=== PATIENT | male | born 1955 | race American Indian/Alaskan Native ===

== ENCOUNTER 2018-10-27 15:48 | Emergency (ER) | payer OTHER ==
--- NOTE | 2018-10-27 15:54 | Event Note ---
ED Screening Note ED Screening Note: pt states he had labwork drawn yesterday states received a call today from his doctors office saying that his blood sugar was too high denies any pain states he has urinary frequency denies any other symptoms PMHx of DM, HTN pt states he takes insulin BG 399 in triage This initial assessment/diagnostic orders/clinical plan/treatment(s) is/are subject to change based on patients health status, clinical progression and re- assessment by fellow clinical providers in the ED. Further treatment and workup at subsequent clinical providers discretion. Patient/guardian urged not to elope from the ED as their condition may be serious if not clinically assessed and managed. Initial orders include: labs, UA
[2018-10-27 16:22] LABS: Hematocrit 42.4 % (35.5-45.6); Hemoglobin 14.2 gm/dl (11.8-15.2); Mean Corpuscular HGB Conc 34 % (32-34); Mean Corpuscular Volume 80 fl (84-94); Platelet Count 164 K/mm3 (140-440); Red Blood Count 5.28 M/mm3 (3.65-5.03); Red Cell Distribution Width 14.7 % (13.2-15.2)
[2018-10-27 16:36] LABS: BUN/Creatinine Ratio 17; Blood Urea Nitrogen 22 mg/dL (9-20); Calcium 9.8 mg/dL (8.4-10.2); Hemolysis Index 4
[2018-10-27 16:59] LABS: Bilirubin,Urine NEG (Negative); Blood,Urine SM (Negative); Color,Urine Straw (Yellow); Protein,Urine <15 mg/dL mg/dL (Negative); Urobilinogen,Urine < 2.0 mg/dL (<2.0); WBC,Urine < 1.0 /HPF (0.0-6.0)
[2018-10-27 17:29] LABS: Basophils % (Manual) 0 % (0.0-1.8); RBC Morphology Normal; Total Cells Counted 100
[2018-10-27] MEDS ORDERED: HumuLIN R IV ONE ×2 (21:22→22:16)
[2018-10-27] MEDS ORDERED: NACL 0.9% 1000 ML 1,000 ML IV ONE (21:22)
[2018-10-28] MEDS ORDERED: HumuLIN R IV ONE (01:47)
[2018-10-28] MEDS ORDERED: NACL 0.9% 1000 ML 1,000 ML IV ONE (01:48)
[2018-10-28] MEDS ORDERED: HumuLIN R ONE (01:52)
[2018-10-28] MEDS ORDERED: NACL 0.9% 1000 ML 1,000 ML ONE (01:53)
[2018-10-28] MEDS ORDERED: ZOFRAN IV ONE (02:33)
[2018-10-28] MEDS ORDERED: ZOFRAN ONE (02:34)
--- NOTE | 2018-10-28 04:36 | Emergency Department Report ---
ED General Adult HPI - General Chief complaint: Hyperglycemia Stated complaint: HIGH BS Time Seen by Provider: 10/27/18 15:52 Source: patient Mode of arrival: Ambulatory Limitations: No Limitations - History of Present Illness MD Complaint: hyperglycemia -: Sudden, days(s) (2) Radiation: non-radiation Severity scale (0 -10): 0 Quality: dull Improves with: none Associated Symptoms: denies other symptoms, loss of appetite, malaise. denies: confusion, chest pain, cough, diaphoresis, fever/chills, headaches, nausea/vomiting, rash, seizure, shortness of breath, syncope, weakness, other Treatments Prior to Arrival: none - Related Data Home Medications Medication Instructions Recorded Confirmed Last Taken Insulin Glargine [Lantus VIAL] 33 units SQ HS 01/07/14 09/30/15 09/29/15 Metformin HCl 1,000 mg PO BID 01/07/14 09/30/15 09/29/15 Sitagliptin Phosphate [Januvia] 100 mg PO DAILY 01/07/14 09/30/15 09/29/15 Aspirin EC 1 tab PO DAILY 06/18/14 09/24/15 09/24/15 Insulin Glargine [Lantus VIAL] 33 unit SUB-Q QAM 06/18/14 09/30/15 09/29/15 Nebivolol (Nf) [Bystolic (Nf)] 10 mg PO DAILY 12/13/14 09/30/15 09/30/15 10:00 AtorvaSTATin [Lipitor] 40 mg PO QDAY 09/24/15 09/30/15 09/29/15 Clopidogrel [Plavix] 75 mg PO QDAY 09/24/15 09/24/15 09/23/15 Losartan/Hydrochlorothiazide 1 tab PO QDAY 09/24/15 09/30/15 09/29/15 [Hyzaar 100-25 TAB] Nitroglycerin [Nitrostat] 0.4 mg SL Q5M PRN 09/24/15 09/24/15 Unknown amLODIPine [Norvasc] 5 mg PO DAILY 09/24/15 09/30/15 09/29/15 Previous Rx's Medication Instructions Recorded Last Taken Type oxyCODONE /ACETAMINOPHEN [Percocet 1 - 2 tab PO Q4HR PRN #40 tablet 09/30/15 Unknown Rx 5/325] Allergies Allergy/AdvReac Type Severity Reaction Status Date / Time No Known Allergies Allergy Verified 10/27/18 15:50 ED Review of Systems ROS: Stated complaint: HIGH BS Other details as noted in HPI ED Past Medical Hx - Past Medical History Hx Hypertension: Yes (FOR 19 YRS, DR. MEADE- PCP, DR. SIBLEY- [employer]) Hx Heart Attack/AMI: Yes (CABG 12/2014, EF 55%, cardiac clearance on chart) Hx Diabetes: Yes (FOR 19 YRS) Hx Renal Disease: No Hx Arthritis: Yes (RIGHT FOOT) Hx HIV: No Additional medical history: cardiac stent x1 - Surgical History Hx Coronary Stent: Yes (X2 IN 2011) - Social History Smoking Status: Never Smoker Substance Use Type: None - Medications Home Medications: Home Medications Medication Instructions Recorded Confirmed Last Taken Type Insulin Glargine [Lantus VIAL] 33 units SQ HS 01/07/14 09/30/15 09/29/15 History Metformin HCl 1,000 mg PO BID 01/07/14 09/30/15 09/29/15 History Sitagliptin Phosphate [Januvia] 100 mg PO DAILY 01/07/14 09/30/15 09/29/15 History Aspirin EC 1 tab PO DAILY 06/18/14 09/24/15 09/24/15 History Insulin Glargine [Lantus VIAL] 33 unit SUB-Q QAM 06/18/14 09/30/15 09/29/15 History Nebivolol (Nf) [Bystolic (Nf)] 10 mg PO DAILY 12/13/14 09/30/15 09/30/15 10:00 History AtorvaSTATin [Lipitor] 40 mg PO QDAY 09/24/15 09/30/15 09/29/15 History Clopidogrel [Plavix] 75 mg PO QDAY 09/24/15 09/24/15 09/23/15 History Losartan/Hydrochlorothiazide 1 tab PO QDAY 09/24/15 09/30/15 09/29/15 History [Hyzaar 100-25 TAB] Nitroglycerin [Nitrostat] 0.4 mg SL Q5M PRN 09/24/15 09/24/15 Unknown History amLODIPine [Norvasc] 5 mg PO DAILY 09/24/15 09/30/15 09/29/15 History oxyCODONE /ACETAMINOPHEN [Percocet 1 - 2 tab PO Q4HR PRN #40 tablet 09/30/15 Unknown Rx 5/325] ED Physical Exam - General Limitations: No Limitations ED Course Vital Signs 10/27/18 10/27/18 15:54 23:06 Temperature 98.4 F 97.6 F Pulse Rate 67 61 Respiratory 16 14 Rate Blood Pressure 113/72 Blood Pressure 122/66 [Left] O2 Sat by Pulse 97 99 Oximetry ED Medical Decision Making - Lab Data Result diagrams: 10/27/18 16:00 10/27/18 16:00 Critical care attestation.: If time is entered above; I have spent that time in minutes in the direct care of this critically ill patient, excluding procedure time. ED Disposition Clinical Impression: Hypoglycemia associated with type 2 diabetes mellitus Disposition: DC-01 TO HOME OR SELFCARE Is pt being admited?: No Does the pt Need Aspirin: No Condition: Stable Instructions: Diabetes Mellitus Type 2 in Adults (ED) Additional Instructions: Take your regular medications, drink plenty of fluids and follow-up with your primary care physician in 2 days for reevaluation. Return to the ED immediately if symptoms get worse. Referrals: AMRITA GUAN [Other] - 3-5 Days Time of Disposition: 04:36 Print Language: LAO
[2018-10-28 04:58] VITALS: BP 136/82
== END 2018-10-28 04:51 | disposition home or self-care (01) ==
LOC: ED 15:48
DX: E11.65 Type 2 diabetes mellitus with hyperglycemia (principal); I10 Essential (primary) hypertension; I25.2 Old myocardial infarction; M19.90 Unspecified osteoarthritis, unspecified site; Z95.5 Presence of coronary angioplasty implant and graft; Z79.899 Other long term (current) drug therapy
CPT/HCPCS: 36415; 80048; 81001; 82962; 85007; 85025; 96361; 96374; 96375; 96376; 99284; J2405; J7030; J1815